=== PATIENT | female | born 1990 | race African-American/Black ===

== ENCOUNTER 2018-02-17 18:08 | Emergency (ER) | payer MEDICAID ==
[2018-02-17 19:41] LABS: APPEARANCE HAZY (CLEAR); BILIRUBIN NEGATIVE (NEGATIVE); COLOR YELLOW (YELLOW); GLUCOSE NEGATIVE (NEGATIVE); KETONE NEGATIVE (NEGATIVE); NITRITE NEGATIVE (NEGATIVE); PROTEIN 1+ mg/dL (NEGATIVE); UROBILINOGEN NORMAL (NORMAL)
[2018-02-17 19:42] LABS: WHITE CELLS - URINE 25-50 /hpf (0-5)
[2018-02-17 19:43] LABS: BACTERIA MODERATE /hpf (NONE SEEN); EPITHELIAL CELLS 0-5 /hpf (0-5); RED CELLS - URINE 0-5 /hpf (0-5)
== END 2018-02-17 19:51 | disposition home or self-care (01) ==
LOC: D.ER 18:08
PROVIDERS: Family Medicine
DX: N39.0 Urinary tract infection, site not specified (principal)

== ENCOUNTER 2018-07-22 21:36 | Emergency (ER) | payer MEDICAID ==
[~2018-07-22] VITALS: Ht 149.9 cm; Wt 86.2 kg
[2018-07-22 21:40] VITALS: Ht 149.9 cm; Wt 86.2 kg
[2018-07-22] MEDS ORDERED: TRAZODONE HCL300 MG (21:42)
[2018-07-22] MEDS ORDERED: SEROQUEL100 MG (21:42)
[2018-07-22] MEDS ORDERED: KEPPRA250 MG (21:42)
[2018-07-22] MEDS ORDERED: LITHIUM CARBON300 MG (21:42)
[2018-07-22 23:39] VITALS: BP 113/72
== END 2018-07-22 23:40 | disposition home or self-care (01) ==
LOC: D.ER 21:36
DX: G40.909 Epilepsy, unspecified, not intractable, without status epilepticus (principal); S40.211A Abrasion of right shoulder, initial encounter; V89.2XXA Person injured in unspecified motor-vehicle accident, traffic, initial encounter; Y93.89 Activity, other specified; Y92.89 Other specified places as the place of occurrence of the external cause; S09.90XA Unspecified injury of head, initial encounter

== ENCOUNTER 2018-10-06 19:41 | Emergency (ER) | payer MEDICAID ==
[~2018-10-06] VITALS: Ht 149.9 cm; Wt 90.7 kg
[~2018-10-06 19:41] MED LIST: KEPPRA250 MG; LITHIUM CARBON300 MG; SEROQUEL100 MG; TRAZODONE HCL300 MG
[2018-10-06 19:45] VITALS: Ht 149.9 cm; Wt 90.7 kg
[2018-10-06 20:07] LABS: BASOPHILS 0.1 % (0-2); EOSINOPHILS 0.2 % (0-7); HEMATOCRIT 34.2 % (36.0-48.0); HEMOGLOBIN 11.1 g/dL (12-16); LYMPHOCYTES 24.9 % (15-50); MCH 29.3 pg (26.0-34.0); MCHC 32.5 g/dL (31.0-37.0); MCV 90.2 fL (80.0-100.0); MEAN PLATELET VOLUME 9.4 fL (7.4-10.4); MONOCYTES 6.4 % (2-11); NEUTROPHILS 68.4 % (40-80); PLATELET COUNT 292 10x3/uL (130-400); RBC 3.79 10x6/uL (4.00-5.40); RDW 14.7 % (11.5-14.5); WBC 8.3 10x3/uL (4.8-10.8)
[2018-10-06 20:19] LABS: HCG SERUM NEGATIVE (NEGATIVE)
[2018-10-06 20:24] LABS: ALKALINE PHOSPHATASE 91 U/L (46-116); ALT (SGPT) 13 U/L (10-68); BILIRUBIN - TOTAL 0.13 mg/dL (0.2-1.3); CALC OSMOLALITY 284 mosm/kg (275-300); CARBON DIOXIDE 26.4 mmol/L (21.0-32.0); CHLORIDE - SERUM 106 mmol/L (98-107); CREATININE - SERUM 0.9 mg/dL (0.6-1.3); GLUCOSE 119 mg/dL (74-106); POTASSIUM - SERUM 3.6 mmol/L (3.5-5.1); PROTEIN - SERUM 7.9 g/dL (6.4-8.2); SODIUM 143 mmol/L (136-145); UREA NITROGEN 9 mg/dL (7-18); eGFR NON AFRICAN AMERICAN 79 mL/min (90-120)
[2018-10-06 21:26] VITALS: BP 140/80
== END 2018-10-06 21:26 | disposition home or self-care (01) ==
LOC: D.ER 19:41
PROVIDERS: Family Medicine
DX: G40.909 Epilepsy, unspecified, not intractable, without status epilepticus (principal)

== ENCOUNTER 2018-12-11 21:34 | Emergency (ER) | payer MEDICAID ==
[~2018-12-11] VITALS: Ht 149.9 cm; Wt 97.7 kg
[2018-12-11 21:51] VITALS: Ht 149.9 cm; Wt 97.7 kg
[2018-12-11 23:40] LABS: HEMATOCRIT 34.5 % (36.0-48.0); HEMOGLOBIN 11.5 g/dL (12-16); LYMPHOCYTES 20.6 % (15-50); MCH 29.5 pg (26.0-34.0); MCHC 33.3 g/dL (31.0-37.0); MCV 88.5 fL (80.0-100.0); MEAN PLATELET VOLUME 9.4 fL (7.4-10.4); NEUTROPHILS 71.1 % (40-80); PLATELET COUNT 295 10x3/uL (130-400); RDW 13.7 % (11.5-14.5); WBC 6.3 10x3/uL (4.8-10.8)
[2018-12-11 23:58] LABS: ALBUMIN 3.8 g/dL (3.4-5.0); ALKALINE PHOSPHATASE 77 U/L (46-116); ALT (SGPT) 15 U/L (10-68); CALC OSMOLALITY 280 mosm/kg (275-300); CALCIUM 8.6 mg/dL (8.5-10.1); CARBON DIOXIDE 27.1 mmol/L (21.0-32.0); CHLORIDE - SERUM 106 mmol/L (98-107); CREATININE - SERUM 0.9 mg/dL (0.6-1.3); GLUCOSE 103 mg/dL (74-106); POTASSIUM - SERUM 3.8 mmol/L (3.5-5.1); PROTEIN - SERUM 7.6 g/dL (6.4-8.2); SODIUM 142 mmol/L (136-145); UREA NITROGEN 6 mg/dL (7-18); eGFR NON AFRICAN AMERICAN 79 mL/min (90-120)
[2018-12-12] MEDS ORDERED: IBUPROFEN600 MG PO (00:43)
[2018-12-12] MEDS ORDERED: ZOFRAN4 MG PO (00:43)
[2018-12-12 01:54] VITALS: BP 139/65
== END 2018-12-12 01:55 | disposition home or self-care (01) ==
LOC: D.ER 21:34
PROVIDERS: Family Medicine
DX: R51 Headache (principal); G40.909 Epilepsy, unspecified, not intractable, without status epilepticus

== ENCOUNTER 2019-01-09 00:39 | Emergency (ER) | payer MEDICAID ==
[~2019-01-09] VITALS: Ht 149.9 cm; Wt 97.7 kg
[~2019-01-09 00:39] MED LIST changes: +IBUPROFEN600 MG PO; +ZOFRAN4 MG PO
[2019-01-09 00:42] VITALS: Ht 149.9 cm; Wt 97.7 kg
[2019-01-09 01:39] LABS: HEMATOCRIT 33.3 % (36.0-48.0); HEMOGLOBIN 11.2 g/dL (12-16); LYMPHOCYTES 33.1 % (15-50); MCH 29.6 pg (26.0-34.0); MCHC 33.6 g/dL (31.0-37.0); MCV 87.9 fL (80.0-100.0); MEAN PLATELET VOLUME 9.2 fL (7.4-10.4); PLATELET COUNT 326 10x3/uL (130-400); RBC 3.79 10x6/uL (4.00-5.40); RDW 14.1 % (11.5-14.5); WBC 6.8 10x3/uL (4.8-10.8)
[2019-01-09 01:48] LABS: ALBUMIN 3.7 g/dL (3.4-5.0); ALKALINE PHOSPHATASE 76 U/L (46-116); ALT (SGPT) 18 U/L (10-68); BILIRUBIN - TOTAL 0.15 mg/dL (0.2-1.3); CALC OSMOLALITY 281 mosm/kg (275-300); CALCIUM 8.7 mg/dL (8.5-10.1); CARBON DIOXIDE 27.1 mmol/L (21.0-32.0); CHLORIDE - SERUM 104 mmol/L (98-107); CREATININE - SERUM 0.9 mg/dL (0.6-1.3); GLUCOSE 108 mg/dL (74-106); POTASSIUM - SERUM 3.7 mmol/L (3.5-5.1); PROTEIN - SERUM 7.5 g/dL (6.4-8.2); SODIUM 142 mmol/L (136-145); UREA NITROGEN 6 mg/dL (7-18); eGFR NON AFRICAN AMERICAN 79 mL/min (90-120)
[2019-01-09 01:59] LABS: TROPONIN-I < 0.017 ng/mL (0.000-0.060)
[2019-01-09] MEDS ORDERED: NAPROSYN500 MG PO (02:09)
[2019-01-09 02:21] VITALS: BP 143/92
== END 2019-01-09 02:22 | disposition home or self-care (01) ==
LOC: D.ER 00:39
PROVIDERS: Family Medicine
DX: R07.9 Chest pain, unspecified (principal); M94.0 Chondrocostal junction syndrome [Tietze]; G40.909 Epilepsy, unspecified, not intractable, without status epilepticus

== ENCOUNTER 2019-01-21 22:47 | Emergency (ER) | payer MEDICAID ==
[~2019-01-21] VITALS: Ht 149.9 cm; Wt 95.0 kg
[~2019-01-21 22:47] MED LIST changes: +NAPROSYN500 MG PO
[2019-01-21 22:52] VITALS: Ht 149.9 cm; Wt 95.0 kg
[2019-01-21] MEDS ORDERED: KEPPRA500 MG PO (23:28)
[2019-01-21 23:47] VITALS: BP 114/82
== END 2019-01-21 23:48 | disposition home or self-care (01) ==
LOC: D.ER 22:47
DX: G40.909 Epilepsy, unspecified, not intractable, without status epilepticus (principal)

== ENCOUNTER 2019-01-26 23:16 | Emergency (ER) | payer MEDICAID ==
[~2019-01-26 23:16] MED LIST changes: +KEPPRA500 MG PO
[2019-01-26 23:20] VITALS: BMI 42.3
[2019-01-26] MEDS ORDERED: ZYRTEC10 MG (23:22)
[2019-01-26 23:38] LABS: BASOPHILS 0 % (0-2); EOSINOPHILS 0.1 % (0-7); HEMATOCRIT 34.7 % (36.0-48.0); HEMOGLOBIN 11.4 g/dL (12-16); IMMATURE GRANULOCYTES 0.1 % (0-5); LYMPHOCYTES 29.9 % (15-50); MCH 28.8 pg (26.0-34.0); MCHC 32.9 g/dL (31.0-37.0); MCV 87.6 fL (80.0-100.0); MEAN PLATELET VOLUME 9.2 fL (7.4-10.4); MONOCYTES 8.3 % (2-11); NEUTROPHILS 61.6 % (40-80); PLATELET COUNT 278 10x3/uL (130-400); RBC 3.96 10x6/uL (4.00-5.40); RDW 14.1 % (11.5-14.5); WBC 7.3 10x3/uL (4.8-10.8)
[2019-01-26 23:58] LABS: SALICYLATES 1.1 mg/dL (2.8-20.0)
[2019-01-27 00:01] LABS: LITHIUM 0.02 mmol/L (0.60-1.20)
[2019-01-27 00:02] LABS: HCG URINE NEGATIVE (NEGATIVE)
[2019-01-27 00:02] LABS: ALBUMIN 3.9 g/dL (3.4-5.0); ALKALINE PHOSPHATASE 89 U/L (46-116); ALT (SGPT) 19 U/L (10-68); BILIRUBIN - TOTAL 0.12 mg/dL (0.2-1.3); CALC OSMOLALITY 281 mosm/kg (275-300); CALCIUM 8.9 mg/dL (8.5-10.1); CARBON DIOXIDE 31.3 mmol/L (21.0-32.0); CHLORIDE - SERUM 107 mmol/L (98-107); CREATININE - SERUM 0.8 mg/dL (0.6-1.3); GLUCOSE 88 mg/dL (74-106); POTASSIUM - SERUM 3.4 mmol/L (3.5-5.1); PROTEIN - SERUM 7.7 g/dL (6.4-8.2); SODIUM 143 mmol/L (136-145); UREA NITROGEN 7 mg/dL (7-18); eGFR NON AFRICAN AMERICAN 90 mL/min (90-120)
[2019-01-27 00:03] LABS: APPEARANCE CLOUDY (CLEAR); BILIRUBIN NEGATIVE (NEGATIVE); COLOR YELLOW (YELLOW); GLUCOSE NEGATIVE (NEGATIVE); KETONE SMALL mg/dL (NEGATIVE); NITRITE NEGATIVE (NEGATIVE); PROTEIN TRACE mg/dL (NEGATIVE); SPECIFIC GRAVITY 1.015 (1.005-1.020); UROBILINOGEN NORMAL (NORMAL)
[2019-01-27 00:04] LABS: BACTERIA MANY /hpf (NONE SEEN); UDS - AMPHET NEGATIVE QUAL (NEGATIVE); UDS - BARB NEGATIVE QUAL (NEGATIVE); UDS - BENZO NEGATIVE QUAL (NEGATIVE); UDS - COCAINE NEGATIVE QUAL (NEGATIVE); UDS - OPIATE NEGATIVE QUAL (NEGATIVE); UDS - PCP NEGATIVE QUAL (NEGATIVE); UDS - THC NEGATIVE QUAL (NEGATIVE)
[2019-01-27 02:10] VITALS: BP 142/80
== END 2019-01-27 02:13 | disposition home or self-care (01) ==
LOC: D.ER 23:16
PROVIDERS: Family Medicine
DX: F32.9 Major depressive disorder, single episode, unspecified (principal); F41.9 Anxiety disorder, unspecified; N39.0 Urinary tract infection, site not specified

== ENCOUNTER 2019-02-11 22:42 | Emergency (ER) | payer MEDICAID ==
[~2019-02-11] VITALS: Ht 149.9 cm; Wt 93.2 kg
[~2019-02-11 22:42] MED LIST changes: +ZYRTEC10 MG
[2019-02-11 22:44] VITALS: Ht 149.9 cm; Wt 93.2 kg
[2019-02-12 01:35] VITALS: BP 137/79
== END 2019-02-12 01:35 | disposition home or self-care (01) ==
LOC: D.ER 22:42
DX: I10 Essential (primary) hypertension (principal); R51 Headache; R11.0 Nausea

== ENCOUNTER 2019-02-12 04:06 | Emergency (ER) | payer MEDICAID ==
[~2019-02-12] VITALS: Ht 149.9 cm; Wt 93.2 kg
[2019-02-12 04:12] VITALS: Ht 149.9 cm; Wt 93.2 kg
[2019-02-12 04:57] LABS: BASOPHILS 0 % (0-2); EOSINOPHILS 0.1 % (0-7); HEMATOCRIT 35.1 % (36.0-48.0); HEMOGLOBIN 11.7 g/dL (12-16); IMMATURE GRANULOCYTES 0.1 % (0-5); LYMPHOCYTES 27.1 % (15-50); MCH 28.7 pg (26.0-34.0); MCHC 33.3 g/dL (31.0-37.0); MCV 86.2 fL (80.0-100.0); MEAN PLATELET VOLUME 9.1 fL (7.4-10.4); MONOCYTES 6.5 % (2-11); NEUTROPHILS 66.2 % (40-80); PLATELET COUNT 319 10x3/uL (130-400); RBC 4.07 10x6/uL (4.00-5.40); RDW 14.1 % (11.5-14.5); WBC 8.2 10x3/uL (4.8-10.8)
[2019-02-12 05:11] LABS: ALBUMIN 3.9 g/dL (3.4-5.0); ALKALINE PHOSPHATASE 82 U/L (46-116); ALT (SGPT) 21 U/L (10-68); BILIRUBIN - TOTAL 0.27 mg/dL (0.2-1.3); CALC OSMOLALITY 279 mosm/kg (275-300); CALCIUM 8.9 mg/dL (8.5-10.1); CARBON DIOXIDE 25.1 mmol/L (21.0-32.0); CHLORIDE - SERUM 104 mmol/L (98-107); CREATININE - SERUM 0.9 mg/dL (0.6-1.3); GLUCOSE 110 mg/dL (74-106); PROTEIN - SERUM 7.7 g/dL (6.4-8.2); SODIUM 141 mmol/L (136-145); UREA NITROGEN 8 mg/dL (7-18); eGFR NON AFRICAN AMERICAN 79 mL/min (90-120)
[2019-02-12 05:17] LABS: POTASSIUM - SERUM 2.9 mmol/L (3.5-5.1)
[2019-02-12 05:47] LABS: HCG SERUM NEGATIVE (NEGATIVE)
[2019-02-12 06:12] VITALS: BP 140/92
== END 2019-02-12 06:40 | disposition home or self-care (01) ==
LOC: D.ER 04:06
PROVIDERS: Family Medicine
DX: R51 Headache (principal); Z86.69 Personal history of other diseases of the nervous system and sense organs; E87.6 Hypokalemia

== ENCOUNTER 2019-02-19 22:43 | Emergency (ER) | payer MEDICAID ==
[~2019-02-19] VITALS: Ht 149.9 cm; Wt 93.2 kg
[2019-02-19 23:02] VITALS: Ht 149.9 cm; Wt 93.2 kg
[2019-02-19 23:39] LABS: BASOPHILS 0.1 % (0-2); EOSINOPHILS 0.1 % (0-7); HEMOGLOBIN 11.6 g/dL (12-16); IMMATURE GRANULOCYTES 0.1 % (0-5); LYMPHOCYTES 25.5 % (15-50); MCH 28.9 pg (26.0-34.0); MCHC 33.1 g/dL (31.0-37.0); MCV 87.1 fL (80.0-100.0); MEAN PLATELET VOLUME 9.2 fL (7.4-10.4); MONOCYTES 4.9 % (2-11); NEUTROPHILS 69.3 % (40-80); PLATELET COUNT 319 10x3/uL (130-400); RBC 4.02 10x6/uL (4.00-5.40); RDW 14.4 % (11.5-14.5); WBC 7.9 10x3/uL (4.8-10.8)
[2019-02-19 23:50] LABS: ALBUMIN 3.9 g/dL (3.4-5.0); ALKALINE PHOSPHATASE 78 U/L (46-116); ALT (SGPT) 19 U/L (10-68); BILIRUBIN - TOTAL 0.24 mg/dL (0.2-1.3); CALC OSMOLALITY 284 mosm/kg (275-300); CARBON DIOXIDE 26.3 mmol/L (21.0-32.0); CHLORIDE - SERUM 106 mmol/L (98-107); CREATININE - SERUM 1.1 mg/dL (0.6-1.3); GLUCOSE 126 mg/dL (74-106); POTASSIUM - SERUM 3.8 mmol/L (3.5-5.1); PROTEIN - SERUM 7.6 g/dL (6.4-8.2); SODIUM 142 mmol/L (136-145); UREA NITROGEN 13 mg/dL (7-18); eGFR NON AFRICAN AMERICAN 63 mL/min (90-120)
[2019-02-19 23:54] LABS: AMYLASE - SERUM 62 U/L (25-115); LIPASE 165 U/L (73-393); TROPONIN-I < 0.017 ng/mL (0.000-0.060)
[2019-02-20 01:29] LABS: APPEARANCE CLOUDY (CLEAR); BILIRUBIN NEGATIVE (NEGATIVE); COLOR YELLOW (YELLOW); GLUCOSE NEGATIVE (NEGATIVE); KETONE NEGATIVE (NEGATIVE); NITRITE NEGATIVE (NEGATIVE); PROTEIN TRACE mg/dL (NEGATIVE); UROBILINOGEN NORMAL (NORMAL)
[2019-02-20 01:30] LABS: HCG URINE NEGATIVE (NEGATIVE)
[2019-02-20 01:43] LABS: BACTERIA MANY /hpf (NONE SEEN); RED CELLS - URINE OCC /hpf (0-5)
[2019-02-20] MEDS ORDERED: FLAGYL500 MG PO (02:18)
[2019-02-20 03:07] VITALS: BP 143/74
[2019-02-21] MEDS ORDERED: ANTIBIOTIC (23:01)
== END 2019-02-20 03:08 | disposition home or self-care (01) ==
LOC: D.ER 22:43
PROVIDERS: Family Medicine
DX: K59.00 Constipation, unspecified (principal); N76.0 Acute vaginitis; B96.89 Other specified bacterial agents as the cause of diseases classified elsewhere

== ENCOUNTER 2019-02-21 22:55 | Emergency (ER) | payer MEDICAID ==
[~2019-02-21] VITALS: Ht 149.9 cm; Wt 90.5 kg
[~2019-02-21 22:55] MED LIST changes: +FLAGYL500 MG PO
[2019-02-21 22:58] VITALS: Ht 149.9 cm; Wt 90.5 kg
[2019-02-21] MEDS ORDERED: ANTIBIOTIC (23:01)
[2019-02-21 23:15] LABS: BASOPHILS 0.1 % (0-2); EOSINOPHILS 0.1 % (0-7); HEMATOCRIT 33.7 % (36.0-48.0); LYMPHOCYTES 34.5 % (15-50); MCH 28.5 pg (26.0-34.0); MCHC 32.6 g/dL (31.0-37.0); MCV 87.3 fL (80.0-100.0); MEAN PLATELET VOLUME 9.3 fL (7.4-10.4); MONOCYTES 5.8 % (2-11); NEUTROPHILS 59.5 % (40-80); PLATELET COUNT 299 10x3/uL (130-400); RBC 3.86 10x6/uL (4.00-5.40); RDW 14.3 % (11.5-14.5); WBC 7.3 10x3/uL (4.8-10.8)
[2019-02-21 23:29] LABS: HCG URINE NEGATIVE (NEGATIVE)
[2019-02-21 23:32] LABS: ALKALINE PHOSPHATASE 74 U/L (46-116); ALT (SGPT) 20 U/L (10-68); BILIRUBIN - TOTAL 0.16 mg/dL (0.2-1.3); CALC OSMOLALITY 283 mosm/kg (275-300); CALCIUM 9.3 mg/dL (8.5-10.1); CARBON DIOXIDE 26.2 mmol/L (21.0-32.0); CHLORIDE - SERUM 106 mmol/L (98-107); CREATININE - SERUM 0.8 mg/dL (0.6-1.3); GLUCOSE 93 mg/dL (74-106); POTASSIUM - SERUM 3.9 mmol/L (3.5-5.1); PROTEIN - SERUM 7.5 g/dL (6.4-8.2); SODIUM 142 mmol/L (136-145); UREA NITROGEN 15 mg/dL (7-18); eGFR NON AFRICAN AMERICAN 90 mL/min (90-120)
[2019-02-21 23:33] LABS: APPEARANCE CLEAR (CLEAR); COLOR YELLOW (YELLOW); GLUCOSE NEGATIVE (NEGATIVE); NITRITE NEGATIVE (NEGATIVE); PROTEIN 1+ mg/dL (NEGATIVE)
[2019-02-21 23:34] LABS: BACTERIA FEW /hpf (NONE SEEN); BILIRUBIN NEGATIVE (NEGATIVE); EPITHELIAL CELLS 0-5 /hpf (0-5); KETONE SMALL mg/dL (NEGATIVE); UROBILINOGEN NORMAL (NORMAL); WHITE CELLS - URINE RARE /hpf (0-5)
[2019-02-22] MEDS ORDERED: MACROBID100 MG PO (01:09)
[2019-02-22] MEDS ORDERED: HYDROCODONE-IB1 EAC3 PO (01:47)
[2019-02-22] MEDS ORDERED: CIPRO500 MG PO (01:47)
[2019-02-22 02:23] VITALS: BP 132/85
== END 2019-02-22 02:24 | disposition home or self-care (01) ==
LOC: D.ER 22:55
PROVIDERS: Emergency Medicine
DX: K52.9 Noninfective gastroenteritis and colitis, unspecified (principal)

== ENCOUNTER 2019-02-24 19:29 | Emergency (ER) | payer MEDICAID ==
[~2019-02-24 19:29] MED LIST changes: +ANTIBIOTIC; +CIPRO500 MG PO; +HYDROCODONE-IB1 EAC3 PO; +MACROBID100 MG PO
[2019-02-24 19:47] VITALS: BMI 40.3
[2019-02-24 21:00] VITALS: BP 132/69
== END 2019-02-24 21:00 | disposition home or self-care (01) ==
LOC: D.ER 19:29
DX: L25.9 Unspecified contact dermatitis, unspecified cause (principal)

== ENCOUNTER 2019-02-24 22:37 | Emergency (ER) | payer MEDICAID ==
[2019-02-24 22:40] VITALS: BMI 40.3
[2019-02-24 23:32] VITALS: BP 159/90
== END 2019-02-24 23:34 | disposition home or self-care (01) ==
LOC: D.ER 22:37
DX: Z76.5 Malingerer [conscious simulation] (principal)

== ENCOUNTER 2019-02-25 03:10 | Emergency (ER) | payer MEDICAID ==
[~2019-02-25] VITALS: Ht 149.9 cm; Wt 93.2 kg
[2019-02-25 03:13] VITALS: Ht 149.9 cm; Wt 93.2 kg
--- NOTE | 2019-02-25 03:38 | NUR ---
DR. PEÑALOZA NOTIFIED OF PT'S ASSESSMENT AND BEHAVIOR. PT DENIES SUICIDE PLAN. PT STATED, "I WAS UPSET BECAUSE MY RIDE COULD NOT GET HERE UNTIL 0600 AFTER I WAS DISCHARGED EARLIER." PT A LOW RISK PER DR. PEÑALOZA. ATTENDING AND CHARGE NURSE NOTIFIED OF ASSESSMENT RESULTS. RESOURCES GIVEN TO PT AND SHE VERBALIZED UNDERSTANDING. PT STATED, "I ALREADY HAVE HELP WHEN I NEED IT." PT STATED, "I WILL BE BETTER IF THE DOCTOR GIVES ME MY MEDICINE."
[2019-02-25 03:48] LABS: BASOPHILS 0 % (0-2); EOSINOPHILS 0 % (0-7); HEMATOCRIT 35.5 % (36.0-48.0); IMMATURE GRANULOCYTES 0.2 % (0-5); LYMPHOCYTES 11.9 % (15-50); MCH 29.1 pg (26.0-34.0); MCHC 33.8 g/dL (31.0-37.0); MEAN PLATELET VOLUME 9.4 fL (7.4-10.4); MONOCYTES 0.4 % (2-11); NEUTROPHILS 87.5 % (40-80); PLATELET COUNT 349 10x3/uL (130-400); RBC 4.13 10x6/uL (4.00-5.40); RDW 14.2 % (11.5-14.5); WBC 9.1 10x3/uL (4.8-10.8)
[2019-02-25 04:00] LABS: ALBUMIN 4.2 g/dL (3.4-5.0); ALKALINE PHOSPHATASE 82 U/L (46-116); ALT (SGPT) 26 U/L (10-68); BILIRUBIN - TOTAL 0.25 mg/dL (0.2-1.3); CALC OSMOLALITY 280 mosm/kg (275-300); CALCIUM 9.3 mg/dL (8.5-10.1); CARBON DIOXIDE 24.6 mmol/L (21.0-32.0); CHLORIDE - SERUM 103 mmol/L (98-107); CREATININE - SERUM 0.7 mg/dL (0.6-1.3); POTASSIUM - SERUM 3.8 mmol/L (3.5-5.1); PROTEIN - SERUM 8.4 g/dL (6.4-8.2); SODIUM 139 mmol/L (136-145); UREA NITROGEN 9 mg/dL (7-18); eGFR NON AFRICAN AMERICAN > 90 mL/min (90-120)
[2019-02-25 04:01] LABS: GLUCOSE 168 mg/dL (74-106)
[2019-02-25 05:26] LABS: UDS - AMPHET NEGATIVE QUAL (NEGATIVE); UDS - BARB NEGATIVE QUAL (NEGATIVE); UDS - BENZO NEGATIVE QUAL (NEGATIVE); UDS - COCAINE NEGATIVE QUAL (NEGATIVE); UDS - OPIATE NEGATIVE QUAL (NEGATIVE); UDS - PCP NEGATIVE QUAL (NEGATIVE); UDS - THC NEGATIVE QUAL (NEGATIVE)
[2019-02-25 05:29] LABS: APPEARANCE CLEAR (CLEAR); BILIRUBIN NEGATIVE (NEGATIVE); COLOR YELLOW (YELLOW); GLUCOSE NEGATIVE (NEGATIVE); KETONE NEGATIVE (NEGATIVE); NITRITE NEGATIVE (NEGATIVE); PROTEIN NEGATIVE (NEGATIVE); SPECIFIC GRAVITY 1.015 (1.005-1.020); UROBILINOGEN NORMAL (NORMAL)
[2019-02-25 05:59] VITALS: BP 155/90
== END 2019-02-25 06:00 | disposition home or self-care (01) ==
LOC: D.ER 03:10
PROVIDERS: Family Medicine
DX: R45.851 Suicidal ideations (principal); Z91.14 Patient's other noncompliance with medication regimen

== ENCOUNTER 2019-03-05 01:08 | Emergency (ER) | payer MEDICAID ==
[2019-03-05 01:15] VITALS: BMI 40.9
[2019-03-05] MEDS ORDERED: HYDROCHLOROTH12.5 M1 PO (01:16)
[2019-03-05 01:54] LABS: APPEARANCE CLOUDY (CLEAR); COLOR YELLOW (YELLOW); GLUCOSE NEGATIVE (NEGATIVE); KETONE NEGATIVE (NEGATIVE); NITRITE NEGATIVE (NEGATIVE); PROTEIN TRACE mg/dL (NEGATIVE); SPECIFIC GRAVITY 1.015 (1.005-1.020); UROBILINOGEN NORMAL (NORMAL)
[2019-03-05 01:54] LABS: HEMATOCRIT 36.5 % (36.0-48.0); HEMOGLOBIN 12.5 g/dL (12-16); LYMPHOCYTES 26.8 % (15-50); MCHC 34.2 g/dL (31.0-37.0); MCV 87.5 fL (80.0-100.0); MEAN PLATELET VOLUME 9.9 fL (7.4-10.4); NEUTROPHILS 66.1 % (40-80); PLATELET COUNT 307 10x3/uL (130-400); RBC 4.17 10x6/uL (4.00-5.40); RDW 13.7 % (11.5-14.5); WBC 9.5 10x3/uL (4.8-10.8)
[2019-03-05 01:55] LABS: BILIRUBIN NEGATIVE (NEGATIVE)
[2019-03-05 01:56] LABS: HCG URINE NEGATIVE (NEGATIVE)
[2019-03-05 02:03] LABS: ALKALINE PHOSPHATASE 77 U/L (46-116); ALT (SGPT) 25 U/L (10-68); BILIRUBIN - TOTAL 0.21 mg/dL (0.2-1.3); CALC OSMOLALITY 280 mosm/kg (275-300); CALCIUM 9.5 mg/dL (8.5-10.1); CARBON DIOXIDE 28.6 mmol/L (21.0-32.0); CHLORIDE - SERUM 104 mmol/L (98-107); POTASSIUM - SERUM 3.8 mmol/L (3.5-5.1); SODIUM 141 mmol/L (136-145); UREA NITROGEN 13 mg/dL (7-18); eGFR NON AFRICAN AMERICAN 70 mL/min (90-120)
[2019-03-05 02:07] LABS: AMYLASE - SERUM 72 U/L (25-115); LIPASE 177 U/L (73-393); TROPONIN-I < 0.017 ng/mL (0.000-0.060)
[2019-03-05 02:10] LABS: GLUCOSE 100 mg/dL (74-106)
--- NOTE | 2019-03-05 02:14 | NUR ---
DR PEÑALOZA NOTIFIED AND REVIEWED PATIENT BEHAVIOR AND ASSESSMENT RESULTS. PT IS A LOW RISK PER DR PEÑALOZA. DR PEÑALOZA STATED TO GIVE RESOURCES TO PT AT TIME PF DISCHARGE. NO FURUTHER ORDERS AT THIS TIME. RESOURCES REVIEWED WITH PT AND SHE VERBALIZED UNDERSTANDING.
[2019-03-05 02:35] LABS: BACTERIA MANY /hpf (NONE SEEN); MUCUS <1+ /lpf (NONE SEEN); RED CELLS - URINE 0-5 /hpf (0-5)
[2019-03-05 06:28] VITALS: BP 131/85
== END 2019-03-05 06:00 | disposition home or self-care (01) ==
LOC: D.ER 01:08
PROVIDERS: Family Medicine
DX: R10.9 Unspecified abdominal pain (principal); Z76.5 Malingerer [conscious simulation]